=== PATIENT | male | born 1960 | race Caucasian/White ===

== ENCOUNTER 2022-07-11 14:42 | Observation (INO) ==
[2022-07-11] MEDS ORDERED: NITROGLYCERIN 2% OINT 1 INCH/GM PACK TOP STA (14:46)
[2022-07-11] MEDS ORDERED: MORPHINE 2 MG/1 ML SYRINGE IV STA (14:46)
[2022-07-11] MEDS ORDERED: ONDANSETRON 4 MG/2 ML VIAL IV STA (14:46)
[2022-07-11] MEDS ORDERED: ASPIRIN 325 MG TABLET PO STA (14:46)
[2022-07-11] MEDS ORDERED: HEPARIN 5,000 UNIT/1 ML VIAL IV ONE (14:46)
[2022-07-11 15:07] LABS: Basophils # 0.1 10*3/uL (0.0-0.2); Basophils % 0.7 % (0.0-0.8); Eosinophils # 0.1 10*3/uL (0.0-0.87); Eosinophils % 1.5 % (0.00-10.9); Hematocrit 43.7 VOL% (42.0-52.0); Hemoglobin 13.9 GM/DL (14.0-18.0); Immature Granulocytes % 0.1 %; Immature Granulocytes Absolute 0.01 #; Lymphocytes # 2.6 10*3/uL (1.4-4.0); Mean Corpuscular HGB Conc 31.8 GM/DL (32-36); Mean Corpuscular Volume 91.4 FL (87-102); Mean Platelet Volume 9.9 FL (9.6-12.0); Monocytes # 1.2 10*3/uL (0.11-0.8); Monocytes % 13.4 % (1.7-12.7); Neutrophils % 54.3 % (38.7-73.9); Platelet Count 273 T/CUMM (130-400); Red Blood Count 4.78 MC/CUMM (3.8-5.5); Red Cell Distribution Width 12.8 % (9.3-17.3); White Blood Count 8.6 T/CUMM (4-12)
[2022-07-11 15:18] LABS: INR 0.9; Partial Thromboplastin Time 24.2 SECS (23.7-32.9)
[2022-07-11 15:33] LABS: Albumin 3.5 G/DL (3.4-5.0); Bilirubin,Total 0.4 MG/DL (0.20-1.00); Calcium 9.3 MG/DL (8.5-10.1); Osmolality,Calculated 281.3 MOS/KG (273-304); Potassium 4.1 MMOL/L (3.5-5.1); Total Protein 7.5 G/DL (6.4-8.2)
[2022-07-11 16:51] LABS: Hyaline Casts,Urine 3 /LPF (0-3); Mucus,Urine Occasional /LPF (Occasional)
[2022-07-11 16:52] LABS: Bilirubin,Urine Negative (Negative); Blood, Urine Trace mg/dL (Negative); Glucose,Urine (UA) Negative (Negative); Ketones,Urine Negative (Negative); Nitrite,Urine Negative (Negative); Protein,Urine Negative (Negative); Urine Appearance Clear (Clear); Urine Color Yellow (Yellow); Urine Specific Gravity 1.025 (1.001-1.035); Urine Urobilinogen 0.2 eU/dL (<2.0); Urine pH 6.5 (4.5-8.0)
[2022-07-11] MEDS ORDERED: MAGNESIUM SULF RIDER 4 GM/100 ML PREMIX IV PRN (17:55)
[2022-07-11] MEDS ORDERED: MAGNESIUM SULF RIDER 2 GM/50 ML PREMIX IV PRN (17:55)
[2022-07-11] MEDS ORDERED: LACTULOSE 20 GM/30 ML UDCUP PO PRN (17:55)
[2022-07-11] MEDS ORDERED: diphenhydrAMINE CAP 25 MG CAPSULE PO PRN (17:55)
[2022-07-11] MEDS ORDERED: ZALEPLON 5 MG CAPSULE PO PRN (17:55)
[2022-07-11] MEDS ORDERED: ONDANSETRON 4 MG/2 ML VIAL IV PRN (17:55)
[2022-07-11] MEDS ORDERED: ALUM/MAG/SIMETH/LIDO VISC 1:1 30 ML BOTTLE PO PRN (17:57)
[2022-07-11] MEDS: ATORVASTATIN 10 MG TABLET PO SCH (21:20)
[2022-07-11] MEDS: carvediloL 6.25 MG TABLET PO SCH (21:20)
[2022-07-12 04:52] LABS: Basophils # 0.1 10*3/uL (0.0-0.2); Basophils % 0.6 % (0.0-0.8); Eosinophils # 0.2 10*3/uL (0.0-0.87); Eosinophils % 2.3 % (0.00-10.9); Hemoglobin 12.4 GM/DL (14.0-18.0); Immature Granulocytes % 0.3 %; Immature Granulocytes Absolute 0.02 #; Lymphocytes # 2.6 10*3/uL (1.4-4.0); Mean Corpuscular HGB Conc 31.8 GM/DL (32-36); Mean Corpuscular Volume 92.2 FL (87-102); Mean Platelet Volume 9.9 FL (9.6-12.0); Neutrophils % 50.8 % (38.7-73.9); Platelet Count 232 T/CUMM (130-400); Red Blood Count 4.23 MC/CUMM (3.8-5.5); Red Cell Distribution Width 13.2 % (9.3-17.3)
[2022-07-12 05:25] LABS: Bilirubin,Total 0.5 MG/DL (0.20-1.00); Calcium 8.5 MG/DL (8.5-10.1); Osmolality,Calculated 288.7 MOS/KG (273-304); Potassium 4.2 MMOL/L (3.5-5.1); Risk Ratio 2.83; Thyroid Stimulating Hormone 3.51 uIU/ml (0.358-3.74); Total Protein 6.1 G/DL (6.4-8.2); VLDL Cholesterol 15.6 MG/DL
[2022-07-12] MEDS ORDERED: SIMETHICONE CHEW 80 MG TABLET PO STA (07:57)
[2022-07-12] MEDS ORDERED: NITROGLYCERIN 2% OINT 1 INCH/GM PACK TOP STA (07:57)
[2022-07-12] MEDS ORDERED: POTASSIUM CHLORIDE RIDER 10 MEQ/100 ML PREMIX IV PRN (08:36)
[2022-07-12] MEDS ORDERED: MAGNESIUM SULF RIDER 2 GM/50 ML PREMIX IV PRN (08:36)
[2022-07-12] MEDS: SODIUM CHLORIDE 0.9% 1,000 ML IV SCH ×2 (09:20→16:25)
[2022-07-12] MEDS: LEVOTHYROXINE 25 MCG TABLET PO SCH (09:50)
[2022-07-12] MEDS ORDERED: HEPARIN/NACL 0.9% 2 UNITS/ML 2,000 UNIT/1,000 ML BAG IV ONE ×2 (10:18→13:54)
[2022-07-12] MEDS ORDERED: fentaNYL 100 MCG/2 ML VIAL ONE ×3 (10:26→14:13)
[2022-07-12] MEDS ORDERED: MIDAZOLAM 2 MG/2 ML VIAL ONE ×4 (10:26→14:13)
[2022-07-12] MEDS ORDERED: ASPIRIN 325 MG TABLET ONE (10:44)
[2022-07-12] MEDS ORDERED: DIAZEPAM 5 MG TABLET PO ONE (11:00)
[2022-07-12] MEDS ORDERED: diphenhydrAMINE CAP 50 MG CAPSULE PO ONE (11:00)
[2022-07-12] MEDS ORDERED: BIVALIRUDIN 250 MG VIAL IV ONE (11:08)
[2022-07-12] MEDS ORDERED: TICAGRELOR 90 MG TABLET ONE ×2 (11:43→14:54)
[2022-07-12] MEDS ORDERED: hydrALAZINE 20 MG/1 ML VIAL IV PRN (12:34)
[2022-07-12] MEDS ORDERED: MORPHINE 2 MG/1 ML SYRINGE IV ONE (12:55)
[2022-07-12] MEDS: carvediloL 6.25 MG TABLET PO SCH ×2 (13:02→21:46)
[2022-07-12] MEDS: ASPIRIN EC 81 MG TABLET PO SCH (13:02)
[2022-07-12] MEDS: PANTOPRAZOLE 40 MG TABLET PO SCH (13:02)
[2022-07-12] MEDS ORDERED: KETOROLAC 30 MG/1 ML VIAL IV ONE (13:19)
[2022-07-12] MEDS ORDERED: ALUM/MAG/SIMETH/LIDO VISC 1:1 30 ML BOTTLE PO ONE (13:20)
[2022-07-12] MEDS: ISOSORBIDE MONONITRATE 30 MG TABLET PO SCH (13:27)
[2022-07-12] MEDS ORDERED: METOPROLOL TARTRATE 5 MG/5 ML VIAL IV ONE (13:53)
[2022-07-12] MEDS ORDERED: LIDOCAINE 1%/EPI INJ 20 ML VIAL ONE (13:54)
[2022-07-12] MEDS ORDERED: HEPARIN 5,000 UNIT/1 ML VIAL IV STA (13:59)
[2022-07-12] MEDS ORDERED: NITROGLYCERIN DRIP 50 MG/250 ML BOTTLE IV ONE (14:24)
[2022-07-12] MEDS ORDERED: VERAPAMIL 5 MG/2 ML VIAL ONE (14:24)
[2022-07-12] MEDS ORDERED: HEPARIN 5,000 UNIT/1 ML VIAL ONE (14:40)
[2022-07-12 17:20] LABS: CKMB % 6.67 %
[2022-07-12 17:32] LABS: High Sensitive Troponin I* 4502.7 ng/L (0-78)
[2022-07-12] MEDS: ATORVASTATIN 10 MG TABLET PO SCH (21:46)
[2022-07-12] MEDS: TICAGRELOR 90 MG TABLET PO SCH (21:47)
[2022-07-13 00:16] LABS: CKMB % 7.77 %
[2022-07-13 00:29] LABS: High Sensitive Troponin I* 17460.6 ng/L (0-78)
[2022-07-13] MEDS: SODIUM CHLORIDE 0.9% 1,000 ML IV SCH (01:04)
[2022-07-13 05:16] LABS: Basophils % 0.3 % (0.0-0.8); Eosinophils # 0.2 10*3/uL (0.0-0.87); Eosinophils % 1.5 % (0.00-10.9); Hematocrit 37.7 VOL% (42.0-52.0); Hemoglobin 11.9 GM/DL (14.0-18.0); Immature Granulocytes % 0.4 %; Immature Granulocytes Absolute 0.05 #; Lymphocytes # 1.8 10*3/uL (1.4-4.0); Lymphocytes % 15.8 % (21.2-54.2); Mean Corpuscular HGB Conc 31.6 GM/DL (32-36); Mean Platelet Volume 10.2 FL (9.6-12.0); Monocytes # 1.4 10*3/uL (0.11-0.8); Platelet Count 204 T/CUMM (130-400); Red Blood Count 4.01 MC/CUMM (3.8-5.5); Red Cell Distribution Width 13.2 % (9.3-17.3); White Blood Count 11.3 T/CUMM (4-12)
[2022-07-13 06:03] LABS: Calcium 8.3 MG/DL (8.5-10.1); Osmolality,Calculated 273.7 MOS/KG (273-304); Potassium 3.9 MMOL/L (3.5-5.1)
[2022-07-13 07:42] LABS: CKMB % 6.96 %; High Sensitive Troponin I* 10454.1 ng/L (0-78)
[2022-07-13] MEDS ORDERED: MAGNESIUM SULF RIDER 2 GM/50 ML PREMIX IV ONE (07:59)
[2022-07-13] MEDS ORDERED: POTASSIUM CHLORIDE 20 MEQ TABLET PO ONE (08:00)
[2022-07-13] MEDS: PANTOPRAZOLE 40 MG TABLET PO SCH (08:48)
[2022-07-13] MEDS: carvediloL 6.25 MG TABLET PO SCH (08:49)
[2022-07-13] MEDS: LEVOTHYROXINE 25 MCG TABLET PO SCH (08:49)
[2022-07-13] MEDS: TICAGRELOR 90 MG TABLET PO SCH (08:49)
[2022-07-13] MEDS: ASPIRIN EC 81 MG TABLET PO SCH (08:49)
[2022-07-13] MEDS: ISOSORBIDE MONONITRATE 30 MG TABLET PO SCH (10:28)
[2022-07-13 11:39] VITALS: BP 129/76
== END 2022-07-13 14:03 | disposition home or self-care (01) ==
LOC: N.ED 14:42 → N.EDINP 14:42 → N.TELES 07-12 09:35
PROVIDERS: ADMIT Internal Medicine Cardiovascular Disease; ATTEND Internal Medicine Cardiovascular Disease
PROC: CLCCHCL (ICD-10-PCS; 2022-07-12 12:15)